=== PATIENT | male | born 1955 | race Two or more races ===

== ENCOUNTER 2024-11-01 15:16 | Inpatient (IN) | payer MEDICAID ==
[~2024-11-01] VITALS: Ht 172.7 cm; Wt 71.3 kg
[2024-11-01 16:14] LABS: BASOPHILS # (AUTO) 0.1 K/uL (0.0-0.2); BASOPHILS % (AUTO) 0.6 % (0.0-2.0); EOSINOPHILS # (AUTO) 1.2 K/uL (0.0-0.7); EOSINOPHILS % (AUTO) 14.3 % (0.0-6.0); HEMATOCRIT 35 % (39-51); HEMOGLOBIN 12.1 g/dL (13.5-17.5); LYMPHOCYTES # (AUTO) 0.9 K/uL (0.8-4.8); LYMPHOCYTES % (AUTO) 10.9 % (20.0-44.0); MEAN CORPUSCULAR HEMOGLOBIN 31 PG (26.0-33.0); MEAN CORPUSCULAR HGB CONC 35 g/dl (31.0-36.0); MEAN CORPUSCULAR VOLUME 90 fL (80-96); MONOCYTES # (AUTO) 0.8 K/uL (0.1-1.30); MONOCYTES % (AUTO) 9.5 % (2.0-12.0); NEUTROPHILS # (AUTO) 5.5 K/uL (1.8-8.9); NEUTROPHILS % (AUTO) 64.7 % (43.0-81.0); PLATELET COUNT (AUTO) 201 K/uL (150-450); RED BLOOD CELL COUNT(AUTO) 3.87 MIL/uL (4.5-6.0); RED CELL DISTRIBUTION WIDTH 15.3 % (11.5-15.0); WHITE BLOOD COUNT (AUTO) 8.5 K/uL (4.3-11.0)
[2024-11-01 16:18] LABS: CALCIUM, SERUM 8.2 mg/dL (8.5-10.1); CARBON DIOXIDE 21 mmol/L (21-32); CHLORIDE 105 mmol/L (98-107); CREATININE 2.5 mg/dL (0.6-1.3); GLUCOSE 310 mg/dL (74-106); POTASSIUM 4.8 mmol/L (3.5-5.1); SODIUM SERUM 137 mmol/L (136-145); UREA NITROGEN, BLOOD 57 mg/dL (7-18)
[2024-11-01 16:27] LABS: ALBUMIN 3.2 g/dL (3.4-5.0); ALCOHOL, BLOOD < 3 mg/dL (0-10); ALKALINE PHOSPHATASE 120 U/L (46-116); ASPARTATE AMINOTRANSFERASE 14 U/L (15-37); BILIRUBIN,DIRECT 0.1 mg/dL (0.0-0.2); BILIRUBIN,TOTAL 0.2 mg/dL (0.2-1.0); TOTAL PROTEIN, SERUM 7.1 g/dL (6.4-8.2)
[2024-11-01 16:28] LABS: ACETAMINOPHEN <10 ug/ml (10-30); SALICYLATE 1.9 mg/dL (2.8-20.0)
[2024-11-01 16:38] LABS: ALANINE AMINOTRANSFERASE < 6 U/L (12-78)
[2024-11-01 17:29] LABS: AMPHETAMINE, URINE NEGATIVE (NEGATIVE); BARBITURATE, URINE NEGATIVE (NEGATIVE); BENZODIAZEPINE, URINE NEGATIVE (NEGATIVE); CANNABINOID, URINE NEGATIVE (NEGATIVE); COCCAINE, URINE NEGATIVE (NEGATIVE); OPIATE, URINE NEGATIVE (NEGATIVE); PHENCYCLIDINE SCREEN,URINE NEGATIVE (NEGATIVE)
[2024-11-01 17:32] LABS: APPEARANCE,URINE SLIGHTLY CLOUDY (CLEAR); BILIRUBIN,URINE NEGATIVE (NEGATIVE); BLOOD, URINE 1+ Ery/uL (NEGATIVE); COLOR,URINE YELLOW (YELLOW); KETONES,URINE NEGATIVE (NEGATIVE); LEUKOCYTE ESTERASE ,URINE 2+ (NEGATIVE); NITRITE, URINE NEGATIVE (NEGATIVE); PROTEIN,URINE 2+ mg/dl (NEGATIVE); UGLUCOSE 2+ mg/dL (NEGATIVE); UROBILINOGEN,URINE 0.2 EU/dL (0.2)
[2024-11-01 18:00] LABS: ADD URINE CULTURE YES; BACTERIA,URINE 1+ /HPF (None Seen); MUCUS,URINE Few /LPF (None Seen); SQUAMOUS EPITHELIAL CELL,UR 0-2 /HPF (None Seen); WBC,URINE 21-50 /HPF (0-3)
[2024-11-01] MEDS ORDERED: QUET25TA PO (18:59)
[2024-11-01] MEDS ORDERED: CLON0.1T PO (18:59)
[2024-11-01] MEDS ORDERED: ACET-73 PO (18:59)
[2024-11-01] MEDS ORDERED: METF-440 PO (18:59)
[2024-11-01] MEDS ORDERED: AMIN30LI66 PO (18:59)
[2024-11-01] MEDS ORDERED: ZINC56.713 TP (18:59)
[2024-11-01] MEDS ORDERED: AMLO-213 PO (18:59)
[2024-11-01] MEDS ORDERED: ZINC220C6 PO (18:59)
[2024-11-01] MEDS ORDERED: DOCU100C36 PO (18:59)
[2024-11-01] MEDS ORDERED: ASCO500T10 PO (18:59)
[2024-11-01] MEDS ORDERED: MAGN400O6 PO (18:59)
[2024-11-01] MEDS ORDERED: DORZ10DR18 EACHEYE (18:59)
[2024-11-01] MEDS ORDERED: QUET50TA PO (18:59)
[2024-11-01] MEDS ORDERED: NETA2.5D3 RIGHTEYE (18:59)
[2024-11-01] MEDS ORDERED: POVI1MED TP (18:59)
[2024-11-01] MEDS ORDERED: ACET325T53 PO (18:59)
[2024-11-01] MEDS ORDERED: DIVA500T2 PO (18:59)
[2024-11-01] MEDS ORDERED: VITS42.53 TP (18:59)
[2024-11-01] MEDS ORDERED: MULT-213 PO (18:59)
[2024-11-01] MEDS ORDERED: DIVA-78 PO (18:59)
[2024-11-01] MEDS ORDERED: CEFTRIAXONE 1GM BAG (ER ONLY) 50 ML IV ONE (19:39)
[2024-11-01] MEDS: CEFTRIAXONE 1GM BAG (ER ONLY) 1 GM/50 ML PIGGYBACK IV ONE (19:55)
[2024-11-01] MEDS ORDERED: MAG HYDROX/AL HYDROX/SIMETH 30 ML UDC PO PRN (20:30)
[2024-11-01] MEDS ORDERED: ACETAMINOPHEN 325 MG TABLET PO PRN (20:30)
[2024-11-01] MEDS ORDERED: DEXTROSE 50%-WATER 50 ML DISP.SYRIN IV PRN (20:30)
[2024-11-01] MEDS ORDERED: ZOLPIDEM TARTRATE 5 MG TABLET PO PRN (20:30)
[2024-11-01] MEDS ORDERED: Z GUARD REMEDY 4 OZ OINT TP PRN (20:30)
[2024-11-01] MEDS ORDERED: CEFTRIAXONE 1 G in IV D5W 50 ML IV SCH (21:00)
[2024-11-01 21:40] VITALS: BP 151/79; TEMP 98.2; O2SAT 100
[2024-11-01 22:00] VITALS: BP 151/79; TEMP 98.2; O2SAT 100
[2024-11-01] MEDS: DIVALPROEX SODIUM 500 MG TABLET.DR PO SCH (22:25)
[2024-11-01] MEDS: TAMSULOSIN 0.4 MG CAP.SR.24H PO SCH (22:26)
[2024-11-01] MEDS: QUETIAPINE FUMARATE 25 MG TABLET PO SCH (22:26)
[2024-11-01] MEDS: BLOOD SUGAR DIAGNOSTIC 1 EACH STRIP VI SCH (22:37)
[2024-11-01] MEDS: INSULIN REGULAR, HUMAN 100 UNIT/ML 3 ML VIAL SQ PRN (22:44)
[2024-11-01] MEDS: IV NS 0.9% 1,000 ML IV PRN (23:13)
[2024-11-02] MEDS: DORZOLAMIDE OPTH 2% 10 ML BOTTLE EACHEYE SCH (08:31)
[2024-11-02] MEDS: DOCUSATE SODIUM 100 MG CAPSULE PO SCH (08:31)
[2024-11-02] MEDS: MULTIVIT W/MINERALS 1 TAB TABLET PO SCH (08:31)
[2024-11-02] MEDS: DIVALPROEX SODIUM 500 MG TABLET.DR PO SCH (08:32)
[2024-11-02] MEDS ORDERED: Medication Not On Formulary EA (Netarsudil Mesylat/Latanoprost (Rocklatan 0.02%-0.005% E RIGHTEYE SCH (09:00)
[2024-11-02] MEDS: QUETIAPINE FUMARATE 25 MG TABLET PO SCH (09:44)
[2024-11-02] MEDS: ASCORBIC ACID 500 MG TABLET PO SCH (09:45)
[2024-11-02] MEDS: *INSULIN REGULAR(HUMULIN R)HUM 100 UNIT/ML VIAL SQ PRN (11:37)
[2024-11-02 12:48] LABS: BASOPHILS # (AUTO) 0.1 K/uL (0.0-0.2); BASOPHILS % (AUTO) 0.7 % (0.0-2.0); EOSINOPHILS # (AUTO) 1.2 K/uL (0.0-0.7); EOSINOPHILS % (AUTO) 15.7 % (0.0-6.0); HEMATOCRIT 30 % (39-51); HEMOGLOBIN 10.3 g/dL (13.5-17.5); LYMPHOCYTES # (AUTO) 1.6 K/uL (0.8-4.8); LYMPHOCYTES % (AUTO) 21.2 % (20.0-44.0); MEAN CORPUSCULAR HEMOGLOBIN 31 PG (26.0-33.0); MEAN CORPUSCULAR HGB CONC 35 g/dl (31.0-36.0); MEAN CORPUSCULAR VOLUME 88 fL (80-96); MONOCYTES # (AUTO) 0.8 K/uL (0.1-1.30); MONOCYTES % (AUTO) 11.3 % (2.0-12.0); NEUTROPHILS # (AUTO) 3.8 K/uL (1.8-8.9); NEUTROPHILS % (AUTO) 51.1 % (43.0-81.0); PLATELET COUNT (AUTO) 183 K/uL (150-450); RED BLOOD CELL COUNT(AUTO) 3.37 MIL/uL (4.5-6.0); RED CELL DISTRIBUTION WIDTH 15.3 % (11.5-15.0); WHITE BLOOD COUNT (AUTO) 7.4 K/uL (4.3-11.0)
[2024-11-02 12:54] LABS: CALCIUM, SERUM 7.4 mg/dL (8.5-10.1); CREATININE 2.4 mg/dL (0.6-1.3); MAGNESIUM 2.4 mg/dL (1.8-2.4); PHOSPHORUS 4.6 mg/dL (2.5-4.9); POTASSIUM 4.7 mmol/L (3.5-5.1)
[2024-11-02 16:00] VITALS: BP 132/64; TEMP 97.7; O2SAT 98
[2024-11-02 20:00] VITALS: BP 128/80; TEMP 98.1; O2SAT 98
[2024-11-02] MEDS: CEFTRIAXONE 1 G in IV D5W 50 ML IV SCH (20:20)
[2024-11-03 08:00] VITALS: BP 171/99; TEMP 97.7; O2SAT 97
[2024-11-03 16:00] VITALS: BP 141/69; TEMP 98.1; O2SAT 96
[2024-11-03] MEDS: CLONIDINE HCL 0.1 MG TABLET PO PRN (21:43)
[2024-11-04 07:00] VITALS: BP 138/78; TEMP 97.4; O2SAT 99
[2024-11-04 08:10] LABS: BASOPHILS # (AUTO) 0.1 K/uL (0.0-0.2); EOSINOPHILS # (AUTO) 0.9 K/uL (0.0-0.7); EOSINOPHILS % (AUTO) 15.9 % (0.0-6.0); HEMATOCRIT 33 % (39-51); HEMOGLOBIN 10.9 g/dL (13.5-17.5); LYMPHOCYTES # (AUTO) 1.4 K/uL (0.8-4.8); LYMPHOCYTES % (AUTO) 24.6 % (20.0-44.0); MEAN CORPUSCULAR HEMOGLOBIN 29 PG (26.0-33.0); MEAN CORPUSCULAR HGB CONC 33 g/dl (31.0-36.0); MEAN CORPUSCULAR VOLUME 89 fL (80-96); MONOCYTES # (AUTO) 0.6 K/uL (0.1-1.30); MONOCYTES % (AUTO) 9.7 % (2.0-12.0); NEUTROPHILS # (AUTO) 2.9 K/uL (1.8-8.9); NEUTROPHILS % (AUTO) 48.8 % (43.0-81.0); PLATELET COUNT (AUTO) 198 K/uL (150-450); RED BLOOD CELL COUNT(AUTO) 3.69 MIL/uL (4.5-6.0); RED CELL DISTRIBUTION WIDTH 15.5 % (11.5-15.0); WHITE BLOOD COUNT (AUTO) 5.9 K/uL (4.3-11.0)
[2024-11-04 08:14] LABS: ALBUMIN 2.7 g/dL (3.4-5.0); BILIRUBIN,TOTAL 0.3 mg/dL (0.2-1.0); CALCIUM, SERUM 7.9 mg/dL (8.5-10.1); MAGNESIUM 2.5 mg/dL (1.8-2.4); PHOSPHORUS 4.1 mg/dL (2.5-4.9); POTASSIUM 4.9 mmol/L (3.5-5.1)
[2024-11-04 16:00] VITALS: BP 132/67; TEMP 97.3; O2SAT 96
[2024-11-04 20:00] VITALS: BP 145/80; TEMP 98.2; O2SAT 97
[2024-11-05] MEDS: MAGNESIUM HYDROXIDE 30 ML UDC PO PRN (00:17)
[2024-11-05 07:01] VITALS: BP 145/80; TEMP 98.2; O2SAT 97
[2024-11-05 08:00] VITALS: BP 155/99; TEMP 98.6; O2SAT 94
[2024-11-05 09:51] LABS: BASOPHILS % (AUTO) 0.4 % (0.0-2.0); EOSINOPHILS # (AUTO) 0.4 K/uL (0.0-0.7); EOSINOPHILS % (AUTO) 3.8 % (0.0-6.0); HEMATOCRIT 41 % (39-51); LYMPHOCYTES # (AUTO) 0.7 K/uL (0.8-4.8); LYMPHOCYTES % (AUTO) 6.9 % (20.0-44.0); MEAN CORPUSCULAR HEMOGLOBIN 31 PG (26.0-33.0); MEAN CORPUSCULAR HGB CONC 32 g/dl (31.0-36.0); MEAN CORPUSCULAR VOLUME 98 fL (80-96); MONOCYTES # (AUTO) 0.7 K/uL (0.1-1.30); MONOCYTES % (AUTO) 6.4 % (2.0-12.0); NEUTROPHILS # (AUTO) 8.8 K/uL (1.8-8.9); NEUTROPHILS % (AUTO) 82.5 % (43.0-81.0); PLATELET COUNT (AUTO) 168 K/uL (150-450); RED CELL DISTRIBUTION WIDTH 17.2 % (11.5-15.0); WHITE BLOOD COUNT (AUTO) 10.7 K/uL (4.3-11.0)
[2024-11-05 10:14] LABS: ALBUMIN 3.1 g/dL (3.4-5.0); BILIRUBIN,TOTAL 0.3 mg/dL (0.2-1.0); CALCIUM, SERUM 8.3 mg/dL (8.5-10.1); MAGNESIUM 2.5 mg/dL (1.8-2.4); PHOSPHORUS 3.4 mg/dL (2.5-4.9); TOTAL PROTEIN, SERUM 6.9 g/dL (6.4-8.2)
[2024-11-05 16:00] VITALS: BP 133/82; TEMP 97.8; O2SAT 96
[2024-11-05 20:00] VITALS: BP 123/67; TEMP 97.9; O2SAT 95
[2024-11-06 06:57] LABS: BASOPHILS % (AUTO) 0.4 % (0.0-2.0); EOSINOPHILS # (AUTO) 0.1 K/uL (0.0-0.7); EOSINOPHILS % (AUTO) 1.1 % (0.0-6.0); HEMATOCRIT 34 % (39-51); HEMOGLOBIN 11.7 g/dL (13.5-17.5); LYMPHOCYTES # (AUTO) 1.2 K/uL (0.8-4.8); LYMPHOCYTES % (AUTO) 12.5 % (20.0-44.0); MEAN CORPUSCULAR HEMOGLOBIN 31 PG (26.0-33.0); MEAN CORPUSCULAR HGB CONC 35 g/dl (31.0-36.0); MEAN CORPUSCULAR VOLUME 89 fL (80-96); MONOCYTES # (AUTO) 0.6 K/uL (0.1-1.30); MONOCYTES % (AUTO) 6.7 % (2.0-12.0); NEUTROPHILS # (AUTO) 7.3 K/uL (1.8-8.9); NEUTROPHILS % (AUTO) 79.3 % (43.0-81.0); PLATELET COUNT (AUTO) 200 K/uL (150-450); RED BLOOD CELL COUNT(AUTO) 3.78 MIL/uL (4.5-6.0); RED CELL DISTRIBUTION WIDTH 15.3 % (11.5-15.0); WHITE BLOOD COUNT (AUTO) 9.2 K/uL (4.3-11.0)
[2024-11-06 07:31] LABS: CALCIUM, SERUM 8.2 mg/dL (8.5-10.1); CREATININE 2.4 mg/dL (0.6-1.3); MAGNESIUM 2.6 mg/dL (1.8-2.4); PHOSPHORUS 4.5 mg/dL (2.5-4.9)
[2024-11-06 08:00] VITALS: BP 146/78; TEMP 97.6; O2SAT 96
[2024-11-06 08:07] LABS: PTH, INTACT 47 pg/mL (15-65)
[2024-11-06 16:00] VITALS: BP 149/70; TEMP 97.8; O2SAT 96
== END 2024-11-06 18:53 | DRG 463 ==
LOC: ER 15:45 → MED 21:03
PROVIDERS: ADMIT Nurse Practitioner Acute Care; ATTEND Nurse Practitioner Acute Care
PROC: 05H933Z Insertion of Infusion Device into Right Brachial Vein, Percutaneous Approach (ICD-10-PCS; principal; 2024-11-01)
DX: N39.0 Urinary tract infection, site not specified (principal); N17.0 Acute kidney failure with tubular necrosis; G93.41 Metabolic encephalopathy; E44.1 Mild protein-calorie malnutrition; E88.09 Other disorders of plasma-protein metabolism, not elsewhere classified; E83.51 Hypocalcemia; E11.22 Type 2 diabetes mellitus with diabetic chronic kidney disease; D64.9 Anemia, unspecified; E11.51 Type 2 diabetes mellitus with diabetic peripheral angiopathy without gangrene; Z66 Do not resuscitate; I12.9 Hypertensive chronic kidney disease with stage 1 through stage 4 chronic kidney disease, or unspecified chronic kidney disease; N18.9 Chronic kidney disease, unspecified; E11.40 Type 2 diabetes mellitus with diabetic neuropathy, unspecified; M89.8X9 Other specified disorders of bone, unspecified site; H40.9 Unspecified glaucoma; N40.0 Benign prostatic hyperplasia without lower urinary tract symptoms; F29 Unspecified psychosis not due to a substance or known physiological condition; E11.621 Type 2 diabetes mellitus with foot ulcer; L97.513 Non-pressure chronic ulcer of other part of right foot with necrosis of muscle; I70.235 Atherosclerosis of native arteries of right leg with ulceration of other part of foot; E86.0 Dehydration; M19.071 Primary osteoarthritis, right ankle and foot; Z79.84 Long term (current) use of oral hypoglycemic drugs; Z87.440 Personal history of urinary (tract) infections
CPT/HCPCS: 36415; 73630-TC; 76770-TC; 80048-TC; 80053-TC; 80076-TC; 80164-TC; 81001; 82962-TC; 83735-TC; 83970; 84100-TC; 84155; 84165; 85025-TC; 85652-TC; 86140-TC; 87081-TC; 87086-TC; 98960; A4223; G0378; G0480; J0696; J1815; J7030; J7060

== ENCOUNTER 2024-12-13 11:14 | Inpatient (IN) | payer MEDICAID ==
[~2024-12-13] VITALS: Ht 177.8 cm; Wt 72.6 kg
[~2024-12-13 11:14] MED LIST: ACET-73 PO; ACET325T53 PO; AMIN30LI66 PO; AMLO-213 PO; ASCO500T10 PO; CEFT1VIA14 IM; CLON0.1T PO; DIVA-78 PO; DIVA500T2 PO; DOCU100C36 PO; DORZ10DR18 EACHEYE; MAGN400O6 PO; METF-440 PO; MULT-213 PO; NETA2.5D3 RIGHTEYE; POVI1MED TP; QUET25TA PO; QUET50TA PO; VITS42.53 TP; ZINC220C6 PO; ZINC56.713 TP
[2024-12-13] MEDS ORDERED: OLANZAPINE 10 MG VIAL IM ONE (11:26)
[2024-12-13] MEDS ORDERED: diphenhydrAMINE HCL 50 MG/ML VIAL ONE (11:26)
[2024-12-13] MEDS ORDERED: LORAZEPAM INJ 2 MG/ML VIAL ONE (11:26)
[2024-12-13] MEDS: OLANZAPINE 10 MG VIAL IM ONE (11:33)
[2024-12-13] MEDS: LORAZEPAM INJ 2 MG/ML VIAL IM ONE (11:35)
[2024-12-13] MEDS: diphenhydrAMINE HCL 50 MG/ML VIAL IM ONE (11:35)
[2024-12-13] MEDS ORDERED: TAMS-12 PO (11:51)
[2024-12-13] MEDS ORDERED: LACT1CAP89 PO (11:51)
[2024-12-13] MEDS ORDERED: INSU100V3 SQ (11:51)
[2024-12-13] MEDS ORDERED: QUET25TA PO (11:51)
[2024-12-13] MEDS ORDERED: CEFD300C3 PO (11:51)
[2024-12-13] MEDS ORDERED: CRAN300T PO (11:51)
[2024-12-13 12:07] LABS: BASOPHILS % (AUTO) 0.5 % (0.0-2.0); EOSINOPHILS # (AUTO) 0.4 K/uL (0.0-0.7); EOSINOPHILS % (AUTO) 6.1 % (0.0-6.0); HEMATOCRIT 33 % (39-51); HEMOGLOBIN 11.4 g/dL (13.5-17.5); LYMPHOCYTES # (AUTO) 0.8 K/uL (0.8-4.8); LYMPHOCYTES % (AUTO) 12.3 % (20.0-44.0); MEAN CORPUSCULAR HEMOGLOBIN 31 PG (26.0-33.0); MEAN CORPUSCULAR HGB CONC 34 g/dl (31.0-36.0); MEAN CORPUSCULAR VOLUME 90 fL (80-96); MONOCYTES # (AUTO) 0.6 K/uL (0.1-1.30); MONOCYTES % (AUTO) 8.6 % (2.0-12.0); NEUTROPHILS # (AUTO) 4.7 K/uL (1.8-8.9); NEUTROPHILS % (AUTO) 72.5 % (43.0-81.0); PLATELET COUNT (AUTO) 221 K/uL (150-450); RED BLOOD CELL COUNT(AUTO) 3.69 MIL/uL (4.5-6.0); RED CELL DISTRIBUTION WIDTH 16.2 % (11.5-15.0); WHITE BLOOD COUNT (AUTO) 6.4 K/uL (4.3-11.0)
[2024-12-13 12:21] LABS: APPEARANCE,URINE CLOUDY (CLEAR); BILIRUBIN,URINE NEGATIVE (NEGATIVE); BLOOD, URINE 2+ Ery/uL (NEGATIVE); COLOR,URINE YELLOW (YELLOW); KETONES,URINE NEGATIVE (NEGATIVE); LEUKOCYTE ESTERASE ,URINE 3+ (NEGATIVE); NITRITE, URINE NEGATIVE (NEGATIVE); PROTEIN,URINE 2+ mg/dl (NEGATIVE); UGLUCOSE 3+ mg/dL (NEGATIVE); UROBILINOGEN,URINE 0.2 EU/dL (0.2)
[2024-12-13 12:24] LABS: CARBON DIOXIDE 22 mmol/L (21-32); CHLORIDE 102 mmol/L (98-107); CREATININE 2.6 mg/dL (0.6-1.3); GLUCOSE 285 mg/dL (74-106); POTASSIUM 3.7 mmol/L (3.5-5.1); SODIUM SERUM 136 mmol/L (136-145); UREA NITROGEN, BLOOD 43 mg/dL (7-18)
[2024-12-13 12:29] LABS: AMPHETAMINE, URINE NEGATIVE (NEGATIVE); BARBITURATE, URINE NEGATIVE (NEGATIVE); BENZODIAZEPINE, URINE NEGATIVE (NEGATIVE); CANNABINOID, URINE NEGATIVE (NEGATIVE); COCCAINE, URINE NEGATIVE (NEGATIVE); OPIATE, URINE NEGATIVE (NEGATIVE); PHENCYCLIDINE SCREEN,URINE NEGATIVE (NEGATIVE)
[2024-12-13 12:29] LABS: ALANINE AMINOTRANSFERASE 13 U/L (12-78); ALBUMIN 3.1 g/dL (3.4-5.0); ALCOHOL, BLOOD < 3 mg/dL (0-10); ALKALINE PHOSPHATASE 129 U/L (46-116); ASPARTATE AMINOTRANSFERASE 18 U/L (15-37); BILIRUBIN,DIRECT 0.1 mg/dL (0.0-0.2); BILIRUBIN,TOTAL 0.2 mg/dL (0.2-1.0); TOTAL PROTEIN, SERUM 7.2 g/dL (6.4-8.2)
[2024-12-13 12:30] LABS: ACETAMINOPHEN <10 ug/ml (10-30)
[2024-12-13 12:32] LABS: ADD URINE CULTURE YES; BACTERIA,URINE Moderate /HPF (None Seen); RBC,URINE 0-2 /HPF (0-2); SQUAMOUS EPITHELIAL CELL,UR 0-2 /HPF (None Seen); WBC,URINE 81-100 /HPF (0-3)
[2024-12-13] MEDS: CIPROFLOXACIN HCL 250 MG TABLET PO SCH (15:00)
[2024-12-13] MEDS ORDERED: CIPROFLOXACIN HCL 500 MG TABLET ONE (15:03)
[2024-12-13] MEDS ORDERED: MAGNESIUM HYDROXIDE 30 ML UDC PO PRN (20:30)
[2024-12-13] MEDS ORDERED: TEMAZEPAM 7.5 MG CAPSULE PO PRN (20:30)
[2024-12-13] MEDS ORDERED: MAG HYDROX/AL HYDROX/SIMETH 30 ML UDC PO PRN (20:30)
[2024-12-13] MEDS: BLOOD SUGAR DIAGNOSTIC 1 EACH STRIP IN ONE (21:06)
[2024-12-13] MEDS ORDERED: CLONIDINE HCL 0.1 MG TABLET PO PRN (22:00)
[2024-12-13] MEDS ORDERED: DEXTROSE 50%-WATER 50 ML DISP.SYRIN IV PRN (22:00)
[2024-12-13] MEDS ORDERED: ACETAMINOPHEN 325 MG TABLET PO PRN (22:00)
[2024-12-13] MEDS: BLOOD SUGAR DIAGNOSTIC 1 EACH STRIP IN SCH (22:16)
[2024-12-13] MEDS: TAMSULOSIN 0.4 MG CAP.SR.24H PO SCH (22:20)
[2024-12-13] MEDS: INSULIN REGULAR, HUMAN 100 UNIT/ML 3 ML VIAL SQ PRN (23:17)
[2024-12-13] MEDS: LORAZEPAM 0.5 MG TABLET PO PRN (23:28)
[2024-12-13] MEDS: ACETAMINOPHEN 325 MG TABLET PO PRN (23:46)
[2024-12-14] MEDS: TEMAZEPAM 7.5 MG CAPSULE PO PRN (00:39)
[2024-12-14 00:59] VITALS: BP 160/78; TEMP 98.1
[2024-12-14] MEDS: CIPROFLOXACIN HCL 250 MG TABLET PO SCH ×2 (05:00→20:37)
[2024-12-14 08:00] VITALS: BP 157/86; TEMP 98.1; O2SAT 95
[2024-12-14 08:59] LABS: CHOLESTEROL 190 mg/dL (<200); HDL CHOLESTEROL 70 mg/dL (40-60); LDL 98 mg/dL (0-99); TRIGLYCERIDES 76 mg/dL (30-150)
[2024-12-14 08:59] LABS: ALBUMIN 3.3 g/dL (3.4-5.0); BILIRUBIN,TOTAL 0.3 mg/dL (0.2-1.0); CALCIUM, SERUM 8.6 mg/dL (8.5-10.1); CREATININE 2.5 mg/dL (0.6-1.3); TOTAL PROTEIN, SERUM 7.6 g/dL (6.4-8.2)
[2024-12-14] MEDS: DOCUSATE SODIUM 100 MG CAPSULE PO SCH (09:55)
[2024-12-14] MEDS: AMLODIPINE BESYLATE 10 MG TABLET PO SCH (09:56)
[2024-12-14] MEDS: ASCORBIC ACID 500 MG TABLET PO SCH (09:57)
[2024-12-14] MEDS: NICOTINE PATCH (14MG) 14 MG PATCH.TD24 TD SCH (10:38)
[2024-12-14] MEDS: POVIDONE-IODINE OINT 28.4 GM TUBE TP SCH (10:39)
[2024-12-14] MEDS: DIVALPROEX SODIUM 500 MG TABLET.DR PO SCH ×2 (10:39→21:12)
[2024-12-14] MEDS: DORZOLAMIDE OPTH 2% 10 ML BOTTLE EACHEYE SCH (10:39)
[2024-12-14] MEDS: QUETIAPINE FUMARATE 25 MG TABLET PO SCH ×2 (10:39→21:13)
[2024-12-14 15:35] VITALS: BP 128/85; TEMP 97.5; O2SAT 98
[2024-12-14 16:00] VITALS: BP 128/85; TEMP 97.5; O2SAT 98
[2024-12-14 20:00] VITALS: BP 146/70; TEMP 97.7; O2SAT 97
[2024-12-14 20:02] VITALS: BP 146/70; TEMP 97.7; O2SAT 97
[2024-12-15 08:00] VITALS: BP 123/67; TEMP 97.6; O2SAT 97
[2024-12-15] MEDS ORDERED: METFORMIN 500 MG TABLET PO SCH (09:00)
[2024-12-15 10:17] LABS: CALCIUM, SERUM 8.5 mg/dL (8.5-10.1); CREATININE 2.6 mg/dL (0.6-1.3)
[2024-12-15] MEDS: LORAZEPAM 0.5 MG TABLET PO PRN (10:55)
[2024-12-15] MEDS: OLANZAPINE 10 MG VIAL IM STA (11:16)
[2024-12-15] MEDS: LORAZEPAM INJ 2 MG/ML VIAL IM STA (14:23)
[2024-12-15 20:18] VITALS: BP 138/82; TEMP 98; O2SAT 99
[2024-12-16 08:00] VITALS: BP 128/80; TEMP 97.8; O2SAT 99
[2024-12-16 15:57] VITALS: BP 138/66; TEMP 97.5; O2SAT 99
[2024-12-16 20:03] VITALS: BP 163/72; TEMP 97.5; O2SAT 99
[2024-12-17 08:00] VITALS: BP 146/73; TEMP 97.5; O2SAT 97
[2024-12-17 16:00] VITALS: BP 122/76; TEMP 97.7; O2SAT 99
[2024-12-17 20:00] VITALS: BP 107/51; TEMP 97.4; O2SAT 98
[2024-12-18 08:00] VITALS: BP 148/68; TEMP 98.6; O2SAT 98
[2024-12-18 08:02] LABS: CALCIUM, SERUM 8.4 mg/dL (8.5-10.1); CREATININE 2.7 mg/dL (0.6-1.3); POTASSIUM 4.8 mmol/L (3.5-5.1)
[2024-12-18 09:00] VITALS: BP 148/68
[2024-12-18] MEDS: OLANZAPINE 10 MG VIAL IM ONE (10:17)
== END 2024-12-18 13:55 | DRG 751 ==
LOC: ER 11:19 → GPS 19:50
PROVIDERS: ADMIT Psychiatry & Neurology Psychosomatic Medicine; ATTEND Internal Medicine
DX: F29 Unspecified psychosis not due to a substance or known physiological condition (principal); N17.9 Acute kidney failure, unspecified; E44.1 Mild protein-calorie malnutrition; E11.22 Type 2 diabetes mellitus with diabetic chronic kidney disease; E11.40 Type 2 diabetes mellitus with diabetic neuropathy, unspecified; E88.09 Other disorders of plasma-protein metabolism, not elsewhere classified; F25.0 Schizoaffective disorder, bipolar type; L97.512 Non-pressure chronic ulcer of other part of right foot with fat layer exposed; N39.0 Urinary tract infection, site not specified; B96.89 Other specified bacterial agents as the cause of diseases classified elsewhere; D64.9 Anemia, unspecified; E11.51 Type 2 diabetes mellitus with diabetic peripheral angiopathy without gangrene; I12.9 Hypertensive chronic kidney disease with stage 1 through stage 4 chronic kidney disease, or unspecified chronic kidney disease; N18.4 Chronic kidney disease, stage 4 (severe); Z79.899 Other long term (current) drug therapy; Z79.4 Long term (current) use of insulin; Z87.440 Personal history of urinary (tract) infections; F17.210 Nicotine dependence, cigarettes, uncomplicated; F39 Unspecified mood [affective] disorder; Z68.23 Body mass index [BMI] 23.0-23.9, adult; E11.621 Type 2 diabetes mellitus with foot ulcer; Z20.822 Contact with and (suspected) exposure to COVID-19; G31.84 Mild cognitive impairment of uncertain or unknown etiology
CPT/HCPCS: 36415; 80048-TC; 80053-TC; 80061-TC; 80076-TC; 80164-TC; 81001; 82140-TC; 82962-TC; 85025-TC; 87081-TC; 87086-TC; 97112-TC; 97116-TC; 97530-TC; G0480; J1200; J1815; J2060; J3490

== ENCOUNTER 2025-04-25 09:40 | Inpatient (IN) | payer MEDICAID ==
[~2025-04-25] VITALS: Ht 175.3 cm; Wt 61.7 kg
[~2025-04-25 09:40] MED LIST changes: -ACET-73 PO; -AMIN30LI66 PO; +CEFD300C3 PO; +CRAN300T PO; +INSU100V3 SQ; +LACT1CAP89 PO; -MAGN400O6 PO; -METF-440 PO; -QUET50TA PO; +TAMS-12 PO; -VITS42.53 TP; -ZINC220C6 PO; -ZINC56.713 TP
[2025-04-25] MEDS ORDERED: FOLI0.8T23 PO (10:17)
[2025-04-25] MEDS ORDERED: NUT.237L67 PO (10:17)
[2025-04-25] MEDS ORDERED: VITS42.53 TP (10:17)
[2025-04-25] MEDS ORDERED: MAGN400O6 PO (10:17)
[2025-04-25] MEDS: IV NS 0.9% 1,000 ML BAG IV ONE (10:25)
[2025-04-25] MEDS: CEFEPIME 1 GM in IV D5W 50 ML IV ONE (10:33)
[2025-04-25 11:14] LABS: PLATELET COUNT (AUTO) 187 K/uL (150-450); RED BLOOD CELL COUNT(AUTO) 3.76 MIL/uL (4.5-6.0); RED CELL DISTRIBUTION WIDTH 16.0 % (11.5-15.0); WHITE BLOOD COUNT (AUTO) 12.6 K/uL (4.3-11.0)
[2025-04-25] MEDS: VANCOMYCIN 1 GM in IV D5W 250 ML IV ONE (11:18)
[2025-04-25 11:30] LABS: CALCIUM, SERUM 8.4 mg/dL (8.5-10.1); CREATININE 2.9 mg/dL (0.6-1.3); SODIUM SERUM 138 mmol/L (136-145); UREA NITROGEN, BLOOD 61 mg/dL (7-18)
[2025-04-25 11:32] LABS: INR 1.2 (0.91-1.10)
[2025-04-25 11:36] LABS: ASPARTATE AMINOTRANSFERASE 16 U/L (15-37); TOTAL PROTEIN, SERUM 6.6 g/dL (6.4-8.2)
[2025-04-25 11:41] LABS: LACTIC ACID 2.2 mmol/L (0.4-2.0)
[2025-04-25] MEDS: KETOROLAC TROMETHAMINE 15 MG/ML VIAL IV ONE (12:04)
[2025-04-25 13:34] LABS: APPEARANCE,URINE CLEAR (CLEAR); BLOOD, URINE 2+ Ery/uL (NEGATIVE); LEUKOCYTE ESTERASE ,URINE 3+ (NEGATIVE); NITRITE, URINE NEGATIVE (NEGATIVE); UGLUCOSE NEGATIVE (NEGATIVE)
[2025-04-25 13:36] LABS: ADD URINE CULTURE YES; SQUAMOUS EPITHELIAL CELL,UR Rare /HPF (None Seen)
[2025-04-25] MEDS ORDERED: Z GUARD REMEDY 4 OZ OINT TP PRN (15:30)
[2025-04-25] MEDS ORDERED: MAG HYDROX/AL HYDROX/SIMETH 30 ML UDC PO PRN (15:30)
[2025-04-25] MEDS ORDERED: ONDANSETRON HCL/PF 4 MG/2 ML VIAL IVP PRN (15:30)
[2025-04-25] MEDS ORDERED: DOSING PER PHARMACY-VANCOMYCIN IV XX PRN (15:30)
[2025-04-25] MEDS ORDERED: DOSING PER PHARMACY-CEFEPIME IVPB XX PRN (15:30)
[2025-04-25] MEDS ORDERED: MAGNESIUM HYDROXIDE 30 ML UDC PO PRN (15:30)
[2025-04-25 16:00] VITALS: BP 110/60; TEMP 97.9; O2SAT 95
[2025-04-25 20:00] VITALS: BP 90/50; TEMP 97.7; O2SAT 92
[2025-04-25] MEDS: IV NS 0.9% 500 ML IV ONE (20:48)
[2025-04-25] MEDS: HEPARIN SODIUM, PORCINE 5000 UNITS/1 ML VIAL SQ SCH (21:25)
[2025-04-26] VITALS: BP 105/50; TEMP 97.9; O2SAT 97
[2025-04-26] MEDS ORDERED: DEXTROSE 50%-WATER 50 ML DISP.SYRIN IV PRN (03:00)
[2025-04-26 04:00] VITALS: BP 91/68; TEMP 97.5; O2SAT 96
[2025-04-26] MEDS: BLOOD SUGAR DIAGNOSTIC 1 EACH STRIP IN SCH (05:15)
[2025-04-26] MEDS: INSULIN REGULAR, HUMAN 100 UNIT/ML 3 ML VIAL SQ PRN (05:16)
[2025-04-26 08:00] VITALS: BP 111/59; TEMP 97.7; O2SAT 100
[2025-04-26] MEDS: PANTOPRAZOLE 40 MG VIAL IV SCH (09:50)
[2025-04-26] MEDS: CEFEPIME 1 GM in IV D5W 50 ML IV SCH (09:53)
[2025-04-26] MEDS: IV D5/ 0.9% NACL 1,000 ML IV PRN (10:22)
[2025-04-26 12:00] VITALS: BP 110/63; TEMP 97.5; O2SAT 100
[2025-04-26] MEDS: VANCOMYCIN 500 MG in IV D5W 100ml IV SCH (12:36)
[2025-04-26 16:00] VITALS: BP 132/62; TEMP 97.5; O2SAT 100
[2025-04-26] MEDS ORDERED: CLONIDINE HCL 0.1 MG TABLET PO PRN (16:30)
[2025-04-26] MEDS ORDERED: MAGNESIUM HYDROXIDE 30 ML UDC PO PRN (16:30)
[2025-04-26] MEDS: NEPRO VAN 237 ML CAN PO SCH (17:00)
[2025-04-26] MEDS ORDERED: DIVALPROEX SODIUM 500 MG TABLET.DR PO SCH ×2 (17:00→22:00)
[2025-04-26] MEDS: AMLODIPINE BESYLATE 10 MG TABLET PO SCH (17:44)
[2025-04-26] MEDS: ASCORBIC ACID 500 MG TABLET PO SCH (17:44)
[2025-04-26] MEDS: QUETIAPINE FUMARATE 25 MG TABLET PO SCH ×2 (17:44→21:43)
[2025-04-26] MEDS: DOCUSATE SODIUM 100 MG CAPSULE PO SCH (17:44)
[2025-04-26 17:45] LABS: PLATELET COUNT (AUTO) 184 K/uL (150-450); RED BLOOD CELL COUNT(AUTO) 3.40 MIL/uL (4.5-6.0); RED CELL DISTRIBUTION WIDTH 16.4 % (11.5-15.0); WHITE BLOOD COUNT (AUTO) 11.3 K/uL (4.3-11.0)
[2025-04-26 18:02] LABS: ASPARTATE AMINOTRANSFERASE 17.0 U/L (15-37); CALCIUM, SERUM 8.4 mg/dL (8.5-10.1); CREATININE 2.6 mg/dL (0.6-1.3); PHOSPHORUS 3.8 mg/dL (2.5-4.9); SODIUM SERUM 142.0 mmol/L (136-145); TOTAL PROTEIN, SERUM 6.2 g/dL (6.4-8.2); UREA NITROGEN, BLOOD 66.0 mg/dL (7-18)
[2025-04-26 18:19] LABS: SODIUM SERUM 142 mmol/L (136-145)
[2025-04-26 18:20] LABS: CALCIUM, SERUM 8.4 mg/dL (8.5-10.1); CREATININE 2.6 mg/dL (0.6-1.3); PHOSPHORUS 3.8 mg/dL (2.5-4.9); UREA NITROGEN, BLOOD 66 mg/dL (7-18)
[2025-04-26 20:00] VITALS: BP 101/53; TEMP 97.9; O2SAT 100
[2025-04-26] MEDS: DIVALPROEX SODIUM 125 MG CAP.SPRINK PO SCH ×2 (21:44→21:45)
[2025-04-26] MEDS: TAMSULOSIN 0.4 MG CAP.SR.24H PO SCH (21:44)
[2025-04-27] VITALS: BP 101/52; TEMP 97.9; O2SAT 100
[2025-04-27 04:00] VITALS: BP 116/80; TEMP 97.9; O2SAT 100
[2025-04-27 05:23] LABS: APPEARANCE,URINE CLEAR (CLEAR); BLOOD, URINE 1+ Ery/uL (NEGATIVE); LEUKOCYTE ESTERASE ,URINE 1+ (NEGATIVE); NITRITE, URINE NEGATIVE (NEGATIVE); UGLUCOSE NEGATIVE (NEGATIVE)
[2025-04-27 05:31] LABS: ADD URINE CULTURE YES; SQUAMOUS EPITHELIAL CELL,UR None Seen /HPF (None Seen)
[2025-04-27 05:32] LABS: CREATININE, URINE 49.1 MG/DL (30.0-125.0); URINE SODIUM, RANDOM 43.0 mmol/l (40-220); URINE TOTAL PROTEIN 108.3 mg/dL (0-11.9)
[2025-04-27 05:51] LABS: EOSINOPHIL,URINE None Seen; YEAST,URINE Many /HPF (None Seen)
[2025-04-27 08:00] VITALS: BP 121/63; TEMP 97.7; O2SAT 100
[2025-04-27] MEDS ORDERED: PANTOPRAZOLE 40 MG TABLET.DR PO SCH (09:00)
[2025-04-27] MEDS: VITAMINS A AND D 56.7 GM TUBE TP SCH (09:06)
[2025-04-27] MEDS: DORZOLAMIDE OPTH 2% 10 ML BOTTLE EACHEYE SCH (09:06)
[2025-04-27] MEDS: VIT B CMPLX 3/FA/VIT C/BIOTIN 1 TAB TABLET PO SCH (09:07)
[2025-04-27] MEDS: ACIDOPHILUS/BULGARICUS 1 EACH TAB.CHEW PO SCH (09:07)
[2025-04-27] MEDS: PANTOPRAZOLE 40 MG/PACK PACK PO SCH (09:07)
[2025-04-27] MEDS: OLANZAPINE 10 MG VIAL IM PRN (09:42)
[2025-04-27 12:00] VITALS: BP 131/61; TEMP 98.1; O2SAT 100
[2025-04-27] MEDS ORDERED: HYDROCODONE/APAP 5/325MG TABLET PO PRN (16:00)
[2025-04-27 16:05] VITALS: BP 133/65; TEMP 98.1; O2SAT 100
[2025-04-27] MEDS: QUETIAPINE FUMARATE 25 MG TABLET PO SCH (16:20)
[2025-04-27] MEDS: GUAIFENESIN/CODEINE 10 ML UDC PO PRN (17:19)
[2025-04-27] MEDS: ACETAMINOPHEN 325 MG TABLET PO PRN (18:41)
[2025-04-27 20:00] VITALS: BP 132/53; TEMP 98.8; O2SAT 100
[2025-04-27 21:04] LABS: PLATELET COUNT (AUTO) 180 K/uL (150-450); RED BLOOD CELL COUNT(AUTO) 3.22 MIL/uL (4.5-6.0); RED CELL DISTRIBUTION WIDTH 17.4 % (11.5-15.0); WHITE BLOOD COUNT (AUTO) 11.9 K/uL (4.3-11.0)
[2025-04-27 21:22] LABS: ASPARTATE AMINOTRANSFERASE 13.0 U/L (15-37); CALCIUM, SERUM 8.9 mg/dL (8.5-10.1); CREATININE 2.3 mg/dL (0.6-1.3); PHOSPHORUS 2.3 mg/dL (2.5-4.9); SODIUM SERUM 146.0 mmol/L (136-145); TOTAL PROTEIN, SERUM 6.2 g/dL (6.4-8.2); UREA NITROGEN, BLOOD 50.0 mg/dL (7-18)
[2025-04-27 21:36] LABS: CREATINE KINASE, TOTAL 53.0 U/L (39-308)
[2025-04-28] VITALS (10 sets, daily range): BP systolic 96–117; BP diastolic 45–73; TEMP 97.5–100.2; O2SAT 90–96
[2025-04-28] MEDS: LEVALBUTEROL HCL NEB 1.25 MG/0.5 ML VIAL.NEB NEB PRN (03:03)
[2025-04-28] MEDS: IPRATROPIUM NEB FS 0.5 MG/2.5 ML AMPUL.NEB NEB PRN (03:03)
[2025-04-28 10:35] LABS: PLATELET COUNT (AUTO) 168 K/uL (150-450); RED BLOOD CELL COUNT(AUTO) 3.24 MIL/uL (4.5-6.0); RED CELL DISTRIBUTION WIDTH 17.0 % (11.5-15.0); WHITE BLOOD COUNT (AUTO) 16.6 K/uL (4.3-11.0)
[2025-04-28 10:48] LABS: CALCIUM, SERUM 8.6 mg/dL (8.5-10.1); CREATININE 2.3 mg/dL (0.6-1.3); PHOSPHORUS 2.9 mg/dL (2.5-4.9); SODIUM SERUM 152.0 mmol/L (136-145); UREA NITROGEN, BLOOD 46.0 mg/dL (7-18)
[2025-04-28] MEDS: IV D5/0.45 NACL 1,000 ML IV PRN (11:26)
[2025-04-28] MEDS ORDERED: IV 1/2NS 1000 ML 1,000 ML IV SCH (11:30)
[2025-04-28] MEDS: ROCKLATAN OP SCH (12:30)
[2025-04-28] MEDS: EYEDROP OP SCH (12:30)
[2025-04-28 14:05] LABS: ABG BASE EXCESS -6.2 mmol/L (-2.0-3.0); ABG OXYGEN SATURATION 92.1 % (94.0-98.0); ABG PCO2 30.8 mmHg (35.0-48.0); ABG PH 7.380 (7.350-7.450); ABG PO2 61.9 mmHg (83.0-108.0); ABG TOTAL HEMOGLOBIN 11.8 G/dL (13.5-17.5); FLOW, BLOOD GAS 10.00 L/min (0.00-30.00); FRACTIONATED INSPIRED OXYGEN 60.0 %; SITE, ABG LEFT RADIAL
[2025-04-28] MEDS: MORPHINE SULFATE INJ 4 MG/ML DISP.SYRIN IV PRN (18:55)
[2025-04-28] MEDS: VALPROATE 500 MG in IV D5W 100 ML IV SCH (20:40)
[2025-04-29] VITALS: BP 124/70; TEMP 98.2; O2SAT 96
[2025-04-29 04:00] VITALS: BP 127/71; TEMP 98.4; O2SAT 95
[2025-04-29 05:08] LABS: PTH, INTACT 15 pg/mL (15-65)
[2025-04-29 08:00] VITALS: BP 128/62; TEMP 98.1; O2SAT 99
[2025-04-29] MEDS ORDERED: Morphine Sulfate Inj IV (08:50)
[2025-04-29] MEDS ORDERED: VALP100V3 IV (08:50)
== END 2025-04-29 13:40 | disposition hospice, home (50) | DRG 720 ==
LOC: ER 10:29 → TELE1 14:54
PROVIDERS: ATTEND Student in an Organized Health Care Education/Training Program
DX: A41.9 Sepsis, unspecified organism (principal); J96.01 Acute respiratory failure with hypoxia; G93.41 Metabolic encephalopathy; E87.20 Acidosis, unspecified; J15.69 Pneumonia due to other Gram-negative bacteria; Z66 Do not resuscitate; D63.1 Anemia in chronic kidney disease; F29 Unspecified psychosis not due to a substance or known physiological condition; N18.4 Chronic kidney disease, stage 4 (severe); E11.22 Type 2 diabetes mellitus with diabetic chronic kidney disease; I12.9 Hypertensive chronic kidney disease with stage 1 through stage 4 chronic kidney disease, or unspecified chronic kidney disease; Z20.822 Contact with and (suspected) exposure to COVID-19; R65.20 Severe sepsis without septic shock; F41.9 Anxiety disorder, unspecified; F01.54 Vascular dementia, unspecified severity, with anxiety; N39.0 Urinary tract infection, site not specified; N40.1 Benign prostatic hyperplasia with lower urinary tract symptoms; N17.9 Acute kidney failure, unspecified; N25.0 Renal osteodystrophy; R13.10 Dysphagia, unspecified; B96.89 Other specified bacterial agents as the cause of diseases classified elsewhere; Z79.4 Long term (current) use of insulin
CPT/HCPCS: 31720; 36415; 36600; 71045-TC; 76770-TC; 80048-TC; 80053-TC; 80076-TC; 80202-TC; 81001; 82550-TC; 82570-TC; 82803-TC; 82962-TC; 83605-TC; 83735-TC; 83970; 84100-TC; 84155; 84165; 84300-TC; 84443-TC; 84484-TC; 85025-TC; 85730-TC; 87040-TC; 87081-TC; 87086-TC; 92526; 92611; 93307-TC; 94762-TC; 94799-TC; A4223; A6213; G0378; J0692; J1644; J1815; J1885; J2270; J2470; J3373; J3490; J7030; J7040; J7042; J7050; J7060